=== PATIENT | male | born 1985 | race African-American/Black ===

== ENCOUNTER 2025-03-29 20:22 | Emergency (ER) | payer OTHER ==
[2025-03-29] MEDS ORDERED: oxyCODONE 5 MG TAB ONE (21:14)
[2025-03-29] MEDS ORDERED: Acetaminophen 325 MG TAB ONE (21:15)
[2025-03-29 21:47] LABS: Platelet Count 156 10x3/uL (150-450)
[2025-03-29 21:51] LABS: Hematocrit 19.6 % (38.8-50.0); Hemoglobin 7.0 g/dL (13.5-17.5); Mean Corpuscular Hemoglobin 34.1 pg (27.0-33.0); Mean Corpuscular Volume 95.6 fL (81.2-95.1); Red Blood Cell (RBC) Count 2.05 10x6/uL (4.32-5.72); White Blood Cell (WBC) Count 7.53 10x3/uL (3.5-10.5)
[2025-03-29 22:46] LABS: Anisocytosis SLIGHT = 6-15 cells (100X) (0-5/hpf); MDiff Complete? YES; Macrocytosis SLIGHT = 6-15 cells (100X) (0-5/hpf); Microcytosis SLIGHT = 6-15 cells (100X) (0-5/hpf); Nucleated RBC (Manual Ct) 17 % (0); Platelet Adequacy Comment Appears Adequate; Sickle Cells SLIGHT = 1-5 cells (100X) (None Seen)
[2025-03-29] MEDS ORDERED: HYDROmorphone 0.5 MG/0.5 ML SYRINGE ONE (23:46)
== END 2025-03-30 01:54 | disposition home or self-care (01) ==
LOC: CSHERS 20:22
DX: D57.00 Hb-SS disease with crisis, unspecified (principal)
CPT/HCPCS: 36415; 36430; 85025; 85046; 86850; 86900; 86901; 96374; J1171; P9016

== ENCOUNTER 2025-04-15 15:46 | Emergency (ER) | payer OTHER ==
[2025-04-15 16:49] LABS: #Basophils 0.04 10x3/uL (0.0-0.2); #Eosinophils 0.15 10x3/uL (0.0-0.5); #Monocytes 1.21 10x3/uL (0.0-1.1); #Neutrophils 1.74 10x3/uL (1.5-8.4); %Basophils 0.6 % (0.0-2.0); %Eosinophils 2.1 % (0.0-6.0); %Lymphocytes 54.6 % (18.0-47.0); %Monocytes 17.2 % (0.0-10.0); %Neutrophils 24.8 % (40.0-75.0); Hematocrit 22.3 % (38.8-50.0); Hemoglobin 7.7 g/dL (13.5-17.5); Mean Corpuscular Hemoglobin 31.7 pg (27.0-33.0); Mean Corpuscular Volume 91.8 fL (81.2-95.1); Platelet Count 188 10x3/uL (150-450); Red Blood Cell (RBC) Count 2.43 10x6/uL (4.32-5.72); White Blood Cell (WBC) Count 7.02 10x3/uL (3.5-10.5)
[2025-04-15 16:52] LABS: INR-International Normal Ratio 1.1; PTT 25.9 sec (22.0-33.0); Prothrombin Time 12.1 sec (9.5-12.1)
[2025-04-15 16:56] LABS: ALT (SGPT) 18 U/L (Less than 45); AST (SGOT) 59 U/L (11-34); Albumin 4.6 g/dL (3.1-4.5); Alkaline Phosphatase 39 U/L (40-110); Anion Gap 14 mmol/L (10-20); BUN (Urea Nitrogen) 12 mg/dL (8.9-20.6); Bilirubin, Total 6.8 mg/dL (0.3-1.2); Calc. Creatinine Clearance 0 mL/min (70-130); Calcium 9.3 mg/dL (7.8-10.44); Carbon Dioxide 22 mmol/L (22-29); Chloride 108 mmol/L (98-107); Globulin 4.0 g/dL (2.4-3.5); Glucose 82 mg/dL (70-105); Potassium 4.2 mmol/L (3.5-5.1); Sodium 140 mmol/L (136-145)
[2025-04-15] MEDS ORDERED: HYDROcodone/Acetaminophen 5/325 mg Tablet ONE (16:59)
== END 2025-04-15 17:03 ==
LOC: CSHERS 15:46 → EEVIPCON 15:46 → CSHERS 17:03
DX: D57.1 Sickle-cell disease without crisis (principal); E80.6 Other disorders of bilirubin metabolism
CPT/HCPCS: 36415; 80053; 85025; 85046; 85610; 85730; 99284